=== PATIENT | female | born 1970 ===

== ENCOUNTER 2018-11-17 08:23 | Day surgery (SDC) | payer OTHER ==
[2018-11-16 11:19] VITALS: BMI 23.0
--- NOTE | 2018-11-17 10:39 | CP.SDSHP ---
Same Day Surgery H & P - History Proposed Procedure: EGD Pre-Op Diagnosis: SEE NOTES - Previous Medical/Surgical History Endocrine/Metabolic: Other Neuro: Other Misc: Other Pain: 4.Moderate Pain - Allergies Allergies: Allergies No Known Allergies Allergy (Verified 11/17/18 08:59) - Physical Exam General Appearance: N Vital Signs: Vital Signs 11/17/18 09:05 Temperature 97.8 F Pulse Rate 75 Respiratory 20 Rate Blood Pressure 114/76 O2 Sat by Pulse 100 Oximetry Mental Status: Alert & Oriented x3 Neuro: Other Heart: WNL Lungs: WNL GI: Other - {Optional Preform as Required} Breast: WNL Abdomen: Other Rectal: Other Integument: WNL : WNL Ortho: WNL ENT: WNL - Impression Pt. Evaluated Today:Candidate for Anesthesia & Procedure: Yes - Date & Time Time: 10:39 Short Stay Discharge - Short Stay Discharge Admitting Diagnosis/Reason for Visit: CHANGE IN BOWEL HABITS Disposition: HOME/ ROUTINE
[2018-11-17] MEDS ORDERED: Propofol 10 mg/ml Inj (20 ML) ONE (10:43)
[2018-11-17] MEDS ORDERED: Lidocaine Hydrochloride 5 ML INJ ONE (10:44)
[2018-11-17] MEDS ORDERED: Belladonna-Phenobarbital PO STA (11:06)
[2018-11-17 11:14] VITALS: TEMP 98
[2018-11-17 11:42] VITALS: RESP 12
[2018-11-17 11:43] VITALS: BP 99/60; PULSE 60; O2SAT 97
== END 2018-11-17 12:25 | disposition home or self-care (01) ==
LOC: C.ENDO 08:23
PROVIDERS: ATTEND Specialist
DX: K52.9 Noninfective gastroenteritis and colitis, unspecified (principal); K64.8 Other hemorrhoids; K64.4 Residual hemorrhoidal skin tags
CPT/HCPCS: 45380; 88305; J2704

== ENCOUNTER 2018-11-24 07:00 | Day surgery (SDC) | payer OTHER | END 2018-11-24 10:05 | disposition home or self-care (01) | LOC: C.ENDO 07:00 | DX: K30 Functional dyspepsia (principal) ==

== ENCOUNTER 2018-12-15 07:25 | Day surgery (SDC) | payer OTHER ==
[2018-12-15 08:05] VITALS: BMI 24.8
[2018-12-15 08:11] VITALS: O2SAT 100
[2018-12-15] MEDS ORDERED: Lactated Ringer's 500 ML IV ONE ×2 (09:11)
--- NOTE | 2018-12-15 09:12 | CP.SDSHP ---
Same Day Surgery H & P - History Proposed Procedure: EGD Pre-Op Diagnosis: SEE NOTES - Previous Medical/Surgical History Endocrine/Metabolic: Other Neuro: Other Misc: Other Pain: 4.Moderate Pain - Allergies Allergies: Allergies No Known Allergies Allergy (Verified 12/14/18 10:29) - Physical Exam General Appearance: N Vital Signs: Vital Signs 12/15/18 07:53 Temperature 97.0 F L Pulse Rate 72 Respiratory 19 Rate Blood Pressure 99/60 L O2 Sat by Pulse 100 Oximetry Mental Status: Alert & Oriented x3 Neuro: WNL Heart: WNL Lungs: WNL GI: Other - {Optional Preform as Required} Breast: WNL Abdomen: Other Rectal: Other Integument: WNL : WNL Ortho: WNL ENT: WNL - Impression Pt. Evaluated Today:Candidate for Anesthesia & Procedure: Yes - Date & Time Time: 09:12 Short Stay Discharge - Short Stay Discharge Admitting Diagnosis/Reason for Visit: DYSPEPSIA Disposition: HOME/ ROUTINE
[2018-12-15] MEDS ORDERED: Propofol 10 mg/ml Inj (20 ML) ONE (09:20)
[2018-12-15] MEDS ORDERED: Lidocaine Hydrochloride 5 ML INJ ONE (09:20)
[2018-12-15] MEDS ORDERED: Midazolam 2 MG/2 ML VIAL ONE (09:20)
[2018-12-15 10:51] VITALS: BP 112/63; PULSE 74; RESP 18
[2018-12-15 11:00] VITALS: TEMP 97.7
== END 2018-12-15 10:49 | disposition home or self-care (01) ==
LOC: C.ENDO 07:25
PROVIDERS: ATTEND Specialist
DX: K30 Functional dyspepsia (principal); K44.9 Diaphragmatic hernia without obstruction or gangrene; K20.9 Esophagitis, unspecified; K31.89 Other diseases of stomach and duodenum
CPT/HCPCS: 43239; 88305; J2250; J2405; J2704; J7120